=== PATIENT | female | born 1990 | race Two or more races ===

== ENCOUNTER 2022-05-13 17:50 | Emergency (ER) | payer MEDICAID, OTHER ==
[~2022-05-13] VITALS: Ht 180.3 cm; Wt 126.8 kg
[2022-05-13 18:14] VITALS: BP 146/91
== END 2022-05-14 00:19 | disposition left against medical advice (07) ==
LOC: ER 17:50
DX: Z48.01 Encounter for change or removal of surgical wound dressing (principal); Z53.21 Procedure and treatment not carried out due to patient leaving prior to being seen by health care provider

== ENCOUNTER 2022-07-14 15:31 | Inpatient (IN) | payer MEDICAID ==
[~2022-07-14] VITALS: Ht 170.2 cm; Wt 150.3 kg
[2022-07-14] MEDS ORDERED: VANCOMYCIN 1GM/250ML 250 ML IV ONE (16:00)
[2022-07-14 16:38] LABS: Basophils # (auto) 0.1 10 ^3/uL (0-0.2); Basophils % (auto) 0.8 % (0.0-2.0); Eosinophils # (auto) 0.4 10 ^3/uL (0-0.8); Hemoglobin 7.4 g/dL (12.2-16.2); Lymphocytes # (auto) 2.1 10 ^3/uL (0.4-5.4); Monocytes # (auto) 0.5 10 ^3/uL (0-1.3); White Blood Cell 7.1 10^3/uL (4.4-10.8)
[2022-07-14 16:40] LABS: Eosinophils % (auto) 5.3 % (0.0-7.0); Hematocrit 25.5 % (36.0-46.0); Lymphocytes % (auto) 30.1 % (10.0-50.0); Mean Corpuscular Hemoglobin 15.9 pg (28.0-32.0); Monocytes % (auto) 7.2 % (0.0-12.0); Neutrophils % (auto) 56.6 % (37.0-80.0); Red Blood Cells 4.63 10^6/uL (4.0-5.20); Red Cell Distribution Width 19.5 % (11.8-14.3)
[2022-07-14 17:05] LABS: Albumin 3.9 g/dL (3.4-5.0); Calcium 8.5 mg/dL (8.5-10.1); Potassium 4.4 mmol/L (3.5-5.1)
[2022-07-14 17:08] LABS: BUN/Creatinine Ratio 15.1 (10.0-20.0); Bilirubin, Total 0.3 mg/dL (0.2-1.0); Total Protein 7.4 g/dL (6.4-8.2)
[2022-07-14] MEDS ORDERED: cloNIDine HCL 0.1 MG TAB PO ONE (20:00)
[2022-07-14] MEDS ORDERED: CLIN-203 PO (21:39)
[2022-07-14] MEDS ORDERED: NAP500T PO (21:39)
[2022-07-14] MEDS ORDERED: MECL-126 PO (21:39)
[2022-07-14] MEDS ORDERED: SODIUM CHLORIDE 0.9% 1,000 ML IV SCH (21:45)
[2022-07-14] MEDS ORDERED: hydrALAZINE HCL 20 MG/ML VL IV PRN (21:45)
[2022-07-14] MEDS ORDERED: MORPHINE SULFATE INJ 2 MG/ml SYRG IV PRN (21:45)
[2022-07-14] MEDS ORDERED: VANCOMYCIN PER PHARMACY 0 MG IV SCH (21:45)
[2022-07-14] MEDS ORDERED: ACETAMINOPHEN 325 MG TAB PO PRN (21:45)
[2022-07-14] MEDS ORDERED: FERROUS SULFATE 325mg EC TAB PO ONE (21:45)
[2022-07-14] MEDS ORDERED: DEXTROSE (50%) 50ML SYRG IV PRN (21:45)
[2022-07-14] MEDS ORDERED: NITROGLYCERIN 0.4 MG SL TAB SL PRN (21:45)
[2022-07-14] MEDS ORDERED: PANTOPRAZOLE 40 MG/10 ML VIAL INJ IV ONE (22:15)
[2022-07-14] MEDS ORDERED: amLODIPine BESYLATE 5 MG TAB PO ONE (22:15)
[2022-07-14 23:09] LABS: Folate (Folic Acid) 12.97 ng/mL (5.38-24)
[2022-07-14 23:14] LABS: Cholesterol 145 mg/dL (< 200); HDL Cholesterol 49 mg/dL (40-59); LDL Cholesterol 94 mg/dL (< 100); Triglycerides 116 mg/dL (< 150)
[2022-07-14] MEDS: ACCU-CHEK COMFORT CURVE STRIP VI SCH (23:15)
[2022-07-14] MEDS: InsuLIN REG 1unit/0.01ml Soln (100units/ml) SC SCH (23:29)
[2022-07-14] MEDS: ASCORBIC ACID 500 MG TAB PO SCH (23:30)
[2022-07-15] MEDS: VANCOMYCIN 1GM/250ML 250 ML IV SCH ×4 (01:48→23:59)
[2022-07-15] MEDS: HYDROcodone-ACET 5/325MG TAB PO PRN ×2 (02:00→22:37)
[2022-07-15 05:19] LABS: Basophils # (auto) 0 10 ^3/uL (0-0.2); Eosinophils # (auto) 0.4 10 ^3/uL (0-0.8); Mean Corpuscular Volume 55.2 fL (80.0-100.0); Neutrophils # (auto) 5.1 10 ^3/uL (1.6-8.6); Nucleated Red Blood Cells % 0.1 %
[2022-07-15 05:21] LABS: Basophils % (auto) 0.6 % (0.0-2.0); Eosinophils % (auto) 4.2 % (0.0-7.0); Hematocrit 23.8 % (36.0-46.0); Lymphocytes # (auto) 2.6 10 ^3/uL (0.4-5.4); Lymphocytes % (auto) 29.8 % (10.0-50.0); Mean Corpuscular Hemoglobin 16.3 pg (28.0-32.0); Mean Corpuscular Hgb Conc. 29.6 g/dL (32.0-36.0); Monocytes # (auto) 0.6 10 ^3/uL (0-1.3); Neutrophils % (auto) 58.4 % (37.0-80.0); Red Cell Distribution Width 19.7 % (11.8-14.3); White Blood Cell 8.7 10^3/uL (4.4-10.8)
[2022-07-15 05:41] LABS: Potassium 3.5 mmol/L (3.5-5.1)
[2022-07-15 05:48] LABS: Albumin 3.9 g/dL (3.4-5.0); BUN/Creatinine Ratio 20.6 (10.0-20.0); Bilirubin, Total 0.4 mg/dL (0.2-1.0); Calcium 8.5 mg/dL (8.5-10.1); Total Protein 7.4 g/dL (6.4-8.2)
[2022-07-15] MEDS: ACCU-CHEK COMFORT CURVE STRIP VI SCH ×4 (09:48→22:00)
[2022-07-15] MEDS: FERROUS SULFATE 325mg EC TAB PO SCH ×2 (09:52→19:01)
[2022-07-15] MEDS: InsuLIN REG 1unit/0.01ml Soln (100units/ml) SC SCH ×4 (09:58→22:40)
[2022-07-15] MEDS: PANTOPRAZOLE 40 MG/10 ML VIAL INJ IV SCH (10:49)
[2022-07-15] MEDS: amLODIPine BESYLATE 5 MG TAB PO SCH (10:49)
[2022-07-15] MEDS: ASCORBIC ACID 500 MG TAB PO SCH ×2 (10:50→22:41)
[2022-07-15] MEDS: ZINC SULFATE 220mg CAP or TAB PO SCH (10:50)
[2022-07-15] MEDS: MULTIPLE VITAMIN TAB PO SCH (10:50)
[2022-07-15] MEDS: SODIUM FERR GLUC 62.5MG/5ML 125 MG in SODIUM CHL 0.9% 100 ML IV SCH (12:00)
[2022-07-15] MEDS ORDERED: IRON SUCROSE COMPLEX 200 MG in SODIUM CHL 0.9% 100 ML IV SCH (12:00)
[2022-07-15] MEDS: CEFEPIME 1GM/ 50ML 50 ML IV SCH ×2 (15:42→22:37)
[2022-07-15 23:34] VITALS: BP 136/77
[2022-07-16] VITALS (8 sets, daily range): BP systolic 109–139; BP diastolic 59–77
[2022-07-16 00:26] LABS: Urine Bacteria NONE SEEN /hpf (None Seen); Urine Blood Negative /uL (Negative); Urine Specific Gravity 1.008 (1.001-1.035); Urine WBC 1 /hpf (0 - 5)
[2022-07-16] MEDS: ACCU-CHEK COMFORT CURVE STRIP VI SCH ×4 (05:55→21:55)
[2022-07-16] MEDS: CEFEPIME 1GM/ 50ML 50 ML IV SCH ×3 (05:55→21:55)
[2022-07-16 05:59] LABS: Basophils # (auto) 0 10 ^3/uL (0-0.2); Lymphocytes # (auto) 2.3 10 ^3/uL (0.4-5.4); Mean Corpuscular Volume 55.4 fL (80.0-100.0); Monocytes # (auto) 0.5 10 ^3/uL (0-1.3)
[2022-07-16 06:03] LABS: Basophils % (auto) 0.3 % (0.0-2.0); Eosinophils # (auto) 0.4 10 ^3/uL (0-0.8); Eosinophils % (auto) 5.1 % (0.0-7.0); Hematocrit 22.5 % (36.0-46.0); Lymphocytes % (auto) 32.5 % (10.0-50.0); Mean Corpuscular Hemoglobin 16.4 pg (28.0-32.0); Mean Corpuscular Hgb Conc. 29.6 g/dL (32.0-36.0); Monocytes % (auto) 7.7 % (0.0-12.0); Neutrophils # (auto) 3.8 10 ^3/uL (1.6-8.6); Neutrophils % (auto) 54.4 % (37.0-80.0); Nucleated Red Blood Cells % 0.1 %; Red Blood Cells 4.06 10^6/uL (4.0-5.20); Red Cell Distribution Width 19.1 % (11.8-14.3)
[2022-07-16] MEDS: InsuLIN REG 1unit/0.01ml Soln (100units/ml) SC SCH ×4 (06:12→22:08)
[2022-07-16 06:17] LABS: BUN/Creatinine Ratio 15.7 (10.0-20.0); Calcium 8.5 mg/dL (8.5-10.1)
[2022-07-16 06:24] LABS: Hemoglobin 6.7 g/dL (12.2-16.2)
[2022-07-16] MEDS: VANCOMYCIN 1GM/250ML 250 ML IV SCH ×2 (09:00→17:56)
[2022-07-16] MEDS: FERROUS SULFATE 325mg EC TAB PO SCH ×2 (09:00→17:58)
[2022-07-16] MEDS: MULTIPLE VITAMIN TAB PO SCH (09:01)
[2022-07-16] MEDS: PANTOPRAZOLE 40 MG/10 ML VIAL INJ IV SCH (09:01)
[2022-07-16] MEDS: ZINC SULFATE 220mg CAP or TAB PO SCH (09:02)
[2022-07-16] MEDS: ASCORBIC ACID 500 MG TAB PO SCH ×2 (09:02→21:55)
[2022-07-16] MEDS: amLODIPine BESYLATE 5 MG TAB PO SCH (09:04)
[2022-07-16] MEDS: HYDROcodone-ACET 5/325MG TAB PO PRN ×2 (09:14→14:46)
[2022-07-16] MEDS: SODIUM FERR GLUC 62.5MG/5ML 125 MG in SODIUM CHL 0.9% 100 ML IV SCH (12:33)
[2022-07-17 05:00] VITALS: BP 132/86
[2022-07-17] MEDS: CEFEPIME 1GM/ 50ML 50 ML IV SCH ×2 (06:06→13:52)
[2022-07-17] MEDS: ACCU-CHEK COMFORT CURVE STRIP VI SCH ×2 (06:06→13:06)
[2022-07-17] MEDS: InsuLIN REG 1unit/0.01ml Soln (100units/ml) SC SCH ×2 (06:17→13:04)
[2022-07-17 07:32] LABS: Basophils # (auto) 0 10 ^3/uL (0-0.2); Basophils % (auto) 0.5 % (0.0-2.0); Eosinophils # (auto) 0.4 10 ^3/uL (0-0.8); Monocytes # (auto) 0.6 10 ^3/uL (0-1.3); Neutrophils # (auto) 4.4 10 ^3/uL (1.6-8.6)
[2022-07-17 07:36] LABS: Eosinophils % (auto) 5.1 % (0.0-7.0); Hematocrit 26.1 % (36.0-46.0); Hemoglobin 7.8 g/dL (12.2-16.2); Lymphocytes # (auto) 2.2 10 ^3/uL (0.4-5.4); Lymphocytes % (auto) 28.3 % (10.0-50.0); Mean Corpuscular Hemoglobin 17.5 pg (28.0-32.0); Mean Corpuscular Hgb Conc. 29.9 g/dL (32.0-36.0); Mean Corpuscular Volume 58.4 fL (80.0-100.0); Monocytes % (auto) 8.1 % (0.0-12.0); Nucleated Red Blood Cells % 0.2 %; Red Blood Cells 4.47 10^6/uL (4.0-5.20); Red Cell Distribution Width 21.1 % (11.8-14.3); White Blood Cell 7.6 10^3/uL (4.4-10.8)
[2022-07-17] MEDS: FERROUS SULFATE 325mg EC TAB PO SCH (08:25)
[2022-07-17] MEDS: HYDROcodone-ACET 5/325MG TAB PO PRN ×2 (08:26→12:45)
[2022-07-17 09:00] VITALS: BP 152/78
[2022-07-17] MEDS ORDERED: VANCOMYCIN 1GM/250ML 250 ML IV SCH (10:00)
[2022-07-17] MEDS: PANTOPRAZOLE 40 MG/10 ML VIAL INJ IV SCH (10:24)
[2022-07-17] MEDS: ZINC SULFATE 220mg CAP or TAB PO SCH (10:25)
[2022-07-17] MEDS: MULTIPLE VITAMIN TAB PO SCH (10:26)
[2022-07-17] MEDS: amLODIPine BESYLATE 5 MG TAB PO SCH (10:27)
[2022-07-17] MEDS: ASCORBIC ACID 500 MG TAB PO SCH (10:27)
[2022-07-17 13:00] VITALS: BP 134/72
[2022-07-17] MEDS ORDERED: DOXY1CAP57 PO (14:00)
[2022-07-17 16:59] VITALS: BP 147/78
== END 2022-07-17 18:14 | disposition home or self-care (01) | DRG 383 ==
LOC: ER 15:31 → TELE 21:38 → TELE-WESTW 07-15 22:15
PROVIDERS: ADMIT Nurse Practitioner Family; ATTEND Internal Medicine Geriatric Medicine
PROC: 30233N1 Transfusion of Nonautologous Red Blood Cells into Peripheral Vein, Percutaneous Approach (ICD-10-PCS; principal; 2022-07-16)
DX: L03.116 Cellulitis of left lower limb (principal); M72.6 Necrotizing fasciitis; D50.9 Iron deficiency anemia, unspecified; E66.01 Morbid (severe) obesity due to excess calories; F17.210 Nicotine dependence, cigarettes, uncomplicated; E11.9 Type 2 diabetes mellitus without complications; L02.416 Cutaneous abscess of left lower limb; I10 Essential (primary) hypertension; L05.91 Pilonidal cyst without abscess; Z68.41 Body mass index [BMI] 40.0-44.9, adult; Z83.3 Family history of diabetes mellitus; Z80.1 Family history of malignant neoplasm of trachea, bronchus and lung; Z80.8 Family history of malignant neoplasm of other organs or systems; Z87.39 Personal history of other diseases of the musculoskeletal system and connective tissue
CPT/HCPCS: 36415; 73700; 73718; 80048; 80053; 80061; 80202; 81001; 82270; 82565; 82607; 82746; 82962; 83036; 83605; 84443; 85025; 86850; 86900; 86901; 86920; 87040; 96361; 96365; 96375; C9113; G0378; J1756; J1815

== ENCOUNTER 2023-02-25 21:36 | Emergency (ER) | payer MEDICAID ==
[~2023-02-25] VITALS: Ht 180.3 cm; Wt 132.6 kg
[~2023-02-25 21:36] MED LIST: DOXY1CAP57 PO; MECL-126 PO; NAP500T PO
[2023-02-25] MEDS ORDERED: HYDROcodone-ACET 10/325MG TAB PO ONE (22:45)
[2023-02-25 23:13] LABS: Anion Gap 8 (5-15); Carbon Dioxide 20 mmol/L (20-30); Chloride 109 mmol/L (98-107); Potassium 3.7 mmol/L (3.5-5.1); Sodium 137 mmol/L (136-145)
[2023-02-25 23:14] LABS: Calcium 9.1 mg/dL (8.7-10.4)
[2023-02-25 23:19] LABS: BUN/Creatinine Ratio 14.8 (10.0-20.0); Blood Urea Nitrogen 12 mg/dL (9-23); Glucose 251 mg/dL (74-106)
[2023-02-25 23:30] LABS: Basophils # (auto) 0.1 10 ^3/uL (0-0.2); Basophils % (auto) 1.8 % (0.0-2.0); Eosinophils # (auto) 0.4 10 ^3/uL (0-0.8); Eosinophils % (auto) 4.5 % (0.0-7.0); Hematocrit 28.6 % (36.0-46.0); Hemoglobin 8.5 g/dL (12.2-16.2); Lymphocytes # (auto) 2.7 10 ^3/uL (0.4-5.4); Lymphocytes % (auto) 32.7 % (10.0-50.0); Mean Corpuscular Hgb Conc. 29.9 g/dL (32.0-36.0); Mean Corpuscular Volume 60.1 fL (80.0-100.0); Monocytes # (auto) 0.6 10 ^3/uL (0-1.3); Monocytes % (auto) 7.7 % (0.0-12.0); Neutrophils # (auto) 4.4 10 ^3/uL (1.6-8.6); Neutrophils % (auto) 53.3 % (37.0-80.0); Nucleated Red Blood Cells % 0.1 %; Red Blood Cells 4.75 10^6/uL (4.0-5.20); Red Cell Distribution Width 19.7 % (11.8-14.3); White Blood Cell 8.3 10^3/uL (4.4-10.8)
[2023-02-26] MEDS ORDERED: ACE3T PO (00:53)
[2023-02-26 01:26] VITALS: BP 132/84; TEMP 97.6; O2SAT 96
[2023-02-26 01:27] VITALS: PULSE 88; RESP 20
[2023-02-26 01:33] LABS: Hypochromia Marked; Platelet Estimate Adequate
== END 2023-02-26 01:29 | disposition home or self-care (01) ==
LOC: ER 21:36
DX: R60.0 Localized edema (principal); Z79.2 Long term (current) use of antibiotics; Z79.899 Other long term (current) drug therapy
CPT/HCPCS: 36415; 80048; 82962; 83880; 85025; 85379; 93970

== ENCOUNTER 2023-03-29 21:55 | Emergency (ER) | payer MEDICAID, OTHER ==
[~2023-03-29] VITALS: Ht 180.3 cm; Wt 145.5 kg
[~2023-03-29 21:55] MED LIST changes: +ACE3T PO
[2023-03-29 22:11] VITALS: BP 158/80; RESP 16; O2SAT 100
[2023-03-29 22:19] LABS: Basophils # (auto) 0.1 10 ^3/uL (0-0.2); Basophils % (auto) 1.1 % (0.0-2.0); Eosinophils # (auto) 0.4 10 ^3/uL (0-0.8); Hemoglobin 8.4 g/dL (12.2-16.2); Lymphocytes # (auto) 2.5 10 ^3/uL (0.4-5.4); Lymphocytes % (auto) 32.4 % (10.0-50.0); Mean Corpuscular Hemoglobin 17.4 pg (28.0-32.0); Mean Corpuscular Hgb Conc. 29.1 g/dL (32.0-36.0); Mean Corpuscular Volume 59.7 fL (80.0-100.0); Monocytes # (auto) 0.6 10 ^3/uL (0-1.3); Monocytes % (auto) 7.7 % (0.0-12.0); Neutrophils # (auto) 4.1 10 ^3/uL (1.6-8.6); Neutrophils % (auto) 53.8 % (37.0-80.0); Nucleated Red Blood Cells % 0.1 %; Red Blood Cells 4.85 10^6/uL (4.0-5.20); Red Cell Distribution Width 18.6 % (11.8-14.3); White Blood Cell 7.7 10^3/uL (4.4-10.8)
[2023-03-29 22:35] LABS: INR 0.98 (0.9-1.15); Partial Thromboplastin Time 25.8 SEC (24.5-34.5); Prothrombin Time 10.3 sec (9.3-11.8)
[2023-03-29 22:38] LABS: Alanine Aminotransferase 37 U/L (7-40); Albumin 4.2 g/dL (3.2-4.8); Alkaline Phosphatase 91 U/L (46-116); Anion Gap 9 (5-15); Anisocytosis Slight; Aspartate Aminotransferase 25 U/L (13-40); BUN/Creatinine Ratio 7.6 (10.0-20.0); Bilirubin, Total 0.3 mg/dL (0.2-1.0); Blood Urea Nitrogen 6 mg/dL (9-23); Carbon Dioxide 23 mmol/L (20-30); Chloride 104 mmol/L (98-107); Glucose 305 mg/dL (74-106); Platelet Estimate Adequate; Potassium 3.4 mmol/L (3.5-5.1); Sodium 136 mmol/L (136-145)
[2023-03-29 22:39] LABS: Hypochromia Marked; Ovalocytes FEW
[2023-03-29 22:55] VITALS: PULSE 96
== END 2023-03-30 00:31 | disposition home or self-care (01) ==
LOC: ER 21:55
DX: D58.9 Hereditary hemolytic anemia, unspecified (principal); R07.89 Other chest pain; Z86.2 Personal history of diseases of the blood and blood-forming organs and certain disorders involving the immune mechanism; Z79.899 Other long term (current) drug therapy
CPT/HCPCS: 36415; 71045; 80053; 83880; 84484; 85025; 85610; 85730; 93005

== ENCOUNTER 2023-04-15 17:00 | Emergency (ER) | payer OTHER ==
[~2023-04-15] VITALS: Ht 180.3 cm; Wt 134.0 kg
[2023-04-15 18:23] LABS: Basophils # (auto) 0.1 10 ^3/uL (0-0.2); Basophils % (auto) 1.2 % (0.0-2.0); Lymphocytes # (auto) 1.3 10 ^3/uL (0.4-5.4); Monocytes # (auto) 0.5 10 ^3/uL (0-1.3); Neutrophils # (auto) 3.5 10 ^3/uL (1.6-8.6); Red Cell Distribution Width 18.3 % (11.8-14.3); White Blood Cell 5.8 10^3/uL (4.4-10.8)
[2023-04-15 18:25] LABS: Eosinophils # (auto) 0.4 10 ^3/uL (0-0.8); Eosinophils % (auto) 7.3 % (0.0-7.0); Hematocrit 28.2 % (36.0-46.0); Hemoglobin 8.3 g/dL (12.2-16.2); Lymphocytes % (auto) 22.2 % (10.0-50.0); Mean Corpuscular Hemoglobin 17.2 pg (28.0-32.0); Mean Corpuscular Hgb Conc. 29.3 g/dL (32.0-36.0); Mean Corpuscular Volume 58.8 fL (80.0-100.0); Monocytes % (auto) 7.9 % (0.0-12.0); Neutrophils % (auto) 61.4 % (37.0-80.0); Nucleated Red Blood Cells % 0.1 %
[2023-04-15 18:39] LABS: Alanine Aminotransferase 38 U/L (7-40); Albumin 4.4 g/dL (3.2-4.8); Alkaline Phosphatase 88 U/L (46-116); Anion Gap 5 (5-15); Aspartate Aminotransferase 30 U/L (13-40); BUN/Creatinine Ratio 9.5 (10.0-20.0); Blood Urea Nitrogen 7 mg/dL (9-23); Calcium 9.2 mg/dL (8.5-10.1); Carbon Dioxide 25 mmol/L (20-30); Chloride 106 mmol/L (98-107); Glucose 177 mg/dL (74-106); Potassium 3.8 mmol/L (3.5-5.1); Sodium 136 mmol/L (136-145)
[2023-04-15 18:40] LABS: Bilirubin, Total 0.3 mg/dL (0.2-1.0)
[2023-04-15] MEDS: SODIUM CHLORIDE 0.9% 1,000 ML IV ONE (20:34)
[2023-04-15 20:37] VITALS: TEMP 98.8
[2023-04-15] MEDS: ACETAMINOPHEN 325 MG TAB PO ONE (20:50)
[2023-04-15 21:26] LABS: Hemoglobin 8.2 g/dL (12.2-16.2)
[2023-04-15 21:28] LABS: Hematocrit 28.1 % (36.0-46.0)
[2023-04-15 23:02] VITALS: BP 157/93; PULSE 96; RESP 18; O2SAT 100
== END 2023-04-15 23:31 | disposition home or self-care (01) ==
LOC: ER 17:00
DX: D64.9 Anemia, unspecified (principal); E11.9 Type 2 diabetes mellitus without complications; I10 Essential (primary) hypertension; R42 Dizziness and giddiness; R06.00 Dyspnea, unspecified
CPT/HCPCS: 36415; 80053; 84484; 85014; 85018; 85025; 86850; 86900; 86901; 96360; 99283; J7030

== ENCOUNTER 2023-09-21 15:20 | Emergency (ER) | payer OTHER ==
[~2023-09-21] VITALS: Ht 180.3 cm; Wt 140.0 kg
[2023-09-21 15:34] VITALS: BP 185/95; PULSE 100; RESP 17; O2SAT 100
[2023-09-21] MEDS: cloNIDine HCL 0.1 MG TAB PO ONE (15:47)
[2023-09-21 16:00] LABS: Basophils # (auto) 0 10 ^3/uL (0-0.2); Basophils % (auto) 0.7 % (0.0-2.0); Eosinophils # (auto) 0.3 10 ^3/uL (0-0.8); Hematocrit 25.9 % (36.0-46.0); Hemoglobin 7.8 g/dL (12.2-16.2); Lymphocytes # (auto) 1.8 10 ^3/uL (0.4-5.4); Lymphocytes % (auto) 25.9 % (10.0-50.0); Mean Corpuscular Hemoglobin 17.6 pg (28.0-32.0); Mean Corpuscular Hgb Conc. 30.2 g/dL (32.0-36.0); Mean Corpuscular Volume 58.4 fL (80.0-100.0); Monocytes # (auto) 0.7 10 ^3/uL (0-1.3); Monocytes % (auto) 10.3 % (0.0-12.0); Neutrophils % (auto) 58.1 % (37.0-80.0); Red Blood Cells 4.44 10^6/uL (4.0-5.20); Red Cell Distribution Width 18.1 % (11.8-14.3); White Blood Cell 6.9 10^3/uL (4.4-10.8)
[2023-09-21 16:04] LABS: Carbon Dioxide 23 mmol/L (20-30)
[2023-09-21 16:05] LABS: Calcium 9.2 mg/dL (8.7-10.4)
[2023-09-21 16:09] LABS: BUN/Creatinine Ratio 8.9 (10.0-20.0); Blood Urea Nitrogen 7 mg/dL (9-23); Glucose 257 mg/dL (74-106)
[2023-09-21 16:12] LABS: Anion Gap 6 (5-15); Chloride 108 mmol/L (98-107); Sodium 137 mmol/L (136-145)
[2023-09-21] MEDS ORDERED: FERROUS SULFATE 325mg EC TAB PO ONE (16:15)
[2023-09-21 16:21] LABS: Urine Bacteria None Seen /hpf (None Seen)
[2023-09-21 16:32] LABS: Urine Blood Negative /uL (Negative); Urine Clarity Clear (Clear); Urine Color Light-Yellow (Yellow); Urine Protein, UAD Negative (Negative); Urine Specific Gravity 1.028 (1.001-1.035); Urine Urobilinogen Normal (Negative); Urine WBC 1 /hpf (0 - 5)
== END 2023-09-21 21:30 | disposition home or self-care (01) ==
LOC: ER 15:20
DX: D64.9 Anemia, unspecified (principal); I10 Essential (primary) hypertension; E11.65 Type 2 diabetes mellitus with hyperglycemia; R42 Dizziness and giddiness
CPT/HCPCS: 36415; 80048; 81001; 84484; 85025